=== PATIENT | female | born 1960 | race Two or more races ===

== ENCOUNTER 2020-02-08 07:39 | Outpatient (CLI) | payer OTHER | END 2020-02-08 23:59 | disposition home or self-care (01) | LOC: LAB 07:39 | PROVIDERS: ATTEND Orthopaedic Surgery | DX: Z01.812 Encounter for preprocedural laboratory examination (principal); Z11.59 Encounter for screening for other viral diseases | CPT/HCPCS: U0003-CS ==

== ENCOUNTER 2020-02-15 06:16 | Day surgery (SDC) | payer OTHER ==
[2020-02-15] MEDS ORDERED: MORPHINE SULFATE PF 10 MG/10 ML AMPUL IV ONE (08:03)
[2020-02-15] MEDS ORDERED: BUPIVACAINE 0.25% 30 ML VIAL ONE (08:04)
[2020-02-15] MEDS ORDERED: MIDAZOLAM HCL 2 MG/2 ML VIAL ONE (08:04)
[2020-02-15] MEDS ORDERED: TRIAMCINOLONE ACETONIDE 40 MG/1 ML VIAL ONE (08:48)
[2020-02-15] MEDS ORDERED: KETOROLAC TROMETHAMINE 30 MG INJ ONE (09:10)
[2020-02-15] MEDS ORDERED: FENTANYL CITRATE 100 MCG/2 ML AMPUL ONE (09:10)
[2020-02-15] MEDS ORDERED: TRAMADOL HCL 50 MG TABLET ONE (11:54)
[2020-02-20] MEDS ORDERED: ONDANSETRON 4 MG/2 ML VIAL ONE (10:00)
[2020-02-20] MEDS ORDERED: CEFAZOLIN 1 G VIAL ONE (10:00)
[2020-02-20] MEDS ORDERED: PROPOFOL 200 MG/20 ML BOTTLE ONE (10:00)
[2020-02-20] MEDS ORDERED: ESMOLOL HCL 100 MG/10 ML VIAL IV ONE (10:00)
[2020-02-20] MEDS ORDERED: DEXAMETHASONE SOD PHOSPHATE 4 MG INJ ONE (10:00)
== END 2020-02-15 12:00 | disposition home or self-care (01) ==
LOC: DS 06:16
PROVIDERS: ATTEND Orthopaedic Surgery
DX: S83.241A Other tear of medial meniscus, current injury, right knee, initial encounter (principal); M17.11 Unilateral primary osteoarthritis, right knee; M65.88 Other synovitis and tenosynovitis, other site; I10 Essential (primary) hypertension; E11.9 Type 2 diabetes mellitus without complications; K21.9 Gastro-esophageal reflux disease without esophagitis; Z88.8 Allergy status to other drugs, medicaments and biological substances; Z79.899 Other long term (current) drug therapy; Z90.710 Acquired absence of both cervix and uterus; Z98.890 Other specified postprocedural states; X58.XXXA Exposure to other specified factors, initial encounter; Y93.89 Activity, other specified; Y92.89 Other specified places as the place of occurrence of the external cause; Y99.8 Other external cause status
CPT/HCPCS: 20610; 29876; 29881; 82962; 97116; 97162; J0690; J1100; J1885; J2250; J2274; J2405; J3010; J3301; J3490 ×2; A4649; A4663; J7030